=== PATIENT | male | born 1995 | race Caucasian/White ===

== ENCOUNTER 2021-11-25 23:08 | Emergency (ER) | payer OTHER ==
[~2021-11-25 23:08] MED LIST: IBUPROFEN600 MG PO
[2021-11-26] MEDS ORDERED: POLYTRIM OP SOL10 ML EARRT (00:24)
== END 2021-11-26 00:40 | disposition home or self-care (01) ==
LOC: ER1 23:08
DX: H72.91 Unspecified perforation of tympanic membrane, right ear (principal)
CPT/HCPCS: 99282

== ENCOUNTER 2021-12-04 20:02 | Emergency (ER) | payer OTHER ==
[~2021-12-04 20:02] MED LIST changes: +POLYTRIM OP SOL10 ML EARRT
[2021-12-05] MEDS ORDERED: AMOXICILLIN500 MG PO (00:14)
== END 2021-12-05 00:25 | disposition home or self-care (01) ==
LOC: ER1 20:02
DX: K02.9 Dental caries, unspecified (principal); K04.01 Reversible pulpitis; F17.210 Nicotine dependence, cigarettes, uncomplicated
CPT/HCPCS: 99282